=== PATIENT | male | born 1955 | race African-American/Black ===

== ENCOUNTER 2016-09-21 18:42 | Emergency (ER) | payer MEDICAID, OTHER ==
[~2016-09-21] VITALS: Ht 188 cm; Wt 93.2 kg
[2016-09-21] MEDS ORDERED: HYDR25TA PO (19:03)
[2016-09-21] MEDS ORDERED: ACETAMINOPHEN 500 MG TABLET PO ONE (19:45)
[2016-09-21] MEDS ORDERED: HYDROCHLOROTHIAZIDE 25 MG TABLET PO ONE (19:45)
[2016-09-21 20:00] VITALS: BP 158/88
== END 2016-09-21 20:50 | disposition home or self-care (01) ==
LOC: EMS 18:43
DX: I10 Essential (primary) hypertension (principal)
CPT/HCPCS: 99283